=== PATIENT | male | born 1940 | race American Indian/Alaskan Native ===

== ENCOUNTER 2018-10-21 17:41 | Inpatient (IN) | payer BC, MEDICARE ==
[2018-10-14 12:28] VITALS: PULSE 220
[2018-10-22 11:49] VITALS: BMI 21.2
--- NOTE | 2018-10-22 14:21 | PCM.CPAPS ---
History of Present Illness - History of Present Illness History of Present Illness: Dr Pyle PMR consultation on Fred Dumont, born 1940 who has been admitted to [facility] acute inpatient rehabilitation following a left CVA with resultant right HP. He has not had a prior event. MRI of the brain revealed a left pontine infarct. Carotid studies did not show significant stenosis. He is right hand dominant and was independent [employer] Review of Systems - Constitutional Constitutional: absent: Chills - EENT Eyes: absent: Change in Vision, Discharge, Dry Eye, Sees Flashes Ears: absent: Ear Discharge, Ear Pain Nose/Mouth/Throat: absent: Nasal Congestion, Nasal Discharge, Hoarsness - Respiratory Respiratory: absent: Cough, Dyspnea, Hemoptysis, Wheezing, Stridor - Gastrointestinal Gastrointestinal: absent: Belching, Bloating, Constipation, Cramping, Diarrhea - Integumentary Integumentary: absent: As Per HPI, Acne, Alopecia, Bleeding Lesions, Change in Hair, Change in Nails, Change in Pigmentation, Changing Lesions, Dry Skin, Erythema, Furuncle, Hirsutism, Lesions, New Lesions, Non-Healing Lesions, Photosensitivity, Pruritus, Rash, Skin Pain, Skin Ulcer, Sores, Striae, Swelling, Unusual Bruising, Wounds, Jaundice, Other - Neurological Neurological: absent: Abnormal Movements, Burning Sensations, Confusion, Headaches, Loss of Vision, Vertigo - Psychiatric Psychiatric: absent: Anxiety Past Patient History - Tetanus Immunizations Tetanus Immunization: Unknown - Past Social History Smoking Status: Never Smoked Alcohol: Occasional Drugs: Denies Home Situation {Lives}: With Family (1 flight of steps) - CARDIAC Hx Cardiac Disorders: Yes Hx Hypertension: Yes - PULMONARY Hx Respiratory Disorders: No - NEUROLOGICAL Hx Neurological Disorder: No - HEENT Hx HEENT Problems: Yes (nosebleed in the past) - RENAL Hx Chronic Kidney Disease: No - ENDOCRINE/METABOLIC Hx Endocrine Disorders: No - HEMATOLOGICAL/ONCOLOGICAL Hx Blood Disorders: No - INTEGUMENTARY Hx Dermatological Problems: No - MUSCULOSKELETAL/RHEUMATOLOGICAL Hx Rheumatoid Arthritis: Yes - GASTROINTESTINAL Other/Comment: Gastro reflux - GENITOURINARY/GYNECOLOGICAL Hx Genitourinary Disorders: No - PSYCHIATRIC Hx Psychophysiologic Disorder: No - SURGICAL HISTORY Hx Surgeries: Yes Other/Comment: Cornary stent,cardiac cath - ANESTHESIA Hx Anesthesia Reactions: No Hx Malignant Hyperthermia: No Meds Allergies/Adverse Reactions: Allergies Allergy/AdvReac Type Severity Reaction Status Date / Time acetaminophen [From Percocet] Allergy RASH Verified 07/30/18 16:52 metronidazole [From Flagyl] Allergy RASH Verified 07/30/18 16:52 neomycin Allergy RASH Verified 07/30/18 16:52 oxycodone [From Percocet] Allergy RASH Verified 07/30/18 16:52 Physical Exam - Constitutional Appears: Non-toxic, No Acute Distress - Head Exam Head Exam: ATRAUMATIC, NORMAL INSPECTION, NORMOCEPHALIC - Eye Exam Eye Exam: EOMI - ENT Exam ENT Exam: Mucous Membranes Moist - Respiratory Exam Respiratory Exam: NORMAL BREATHING PATTERN - Cardiovascular Exam Cardiovascular Exam: REGULAR RHYTHM - GI/Abdominal Exam GI & Abdominal Exam: Normal Bowel Sounds - Extremities Exam Extremities exam: Negative for: calf tenderness - Neurological Exam Neurological exam: Alert, CN II-XII Intact, Oriented x3 - Psychiatric Exam Psychiatric exam: Normal Affect, Normal Mood - Skin Skin Exam: Warm Assessment & Plan - Assessment and Plan (Free Text) Assessment: PT/OT to continue to help increase functional independence Team conference for d/c planning Pain: controlled Vascular: no evidence of DVT GI: No evidence of constipation or diarrhea Patient is an excellent acute rehabilitation candidate and will have focused speech, PT, OT and recreational therapy to help facilitate a safe and appropriate d/c plan - Functional Status Prior to Admission: independent Current Status: needs assistance in ADLs and ambulation Impairment Code: 01.2
--- NOTE | 2018-10-22 15:19 | CP.PCM.HP ---
History of Present Illness - History of Present Illness History of Present Illness: 78 yo male with history of HTN, CAD, AFib, Colon cancer post-resection in 2013 and ESRD was admitted in [facility] on 10/14/2018 because of sudden onset of paresthesia of the left hand and right side of the face. MRI showed left pontine infarct. On 10/20/2018 patient underwent his 1st hemodialysis followed with another hemodialysis the next day. He was transferred to Acute Rehab today, 10/22/2018, to undergo therapy and continued management. Present on Admission - Present on Admission Any Indicators Present on Admission: Yes History of DVT/PE: Yes History of Uncontrolled Diabetes: Yes Urinary Catheter: Yes Decubitus Ulcer Present: Yes Review of Systems - Review of Systems All systems: reviewed and no additional remarkable complaints except (aside from those mentioned above, 12 point system review were negative by me) Past Patient History - Tetanus Immunizations Tetanus Immunization: Unknown - Past Social History Smoking Status: Never Smoked Chewing Tobacco Use: No Cigar Use: No Alcohol: Occasional Drugs: Denies Home Situation {Lives}: With Family - CARDIAC Hx Cardiac Disorders: Yes Hx Atrial Fibrillation: Yes Hx Hypertension: Yes - PULMONARY Hx Respiratory Disorders: No - NEUROLOGICAL Hx Neurological Disorder: No - HEENT Hx HEENT Problems: Yes (nosebleed in the past) - RENAL Hx Chronic Kidney Disease: Yes Hx Dialysis: Yes Type of Dialysis Access: right subclavian Date of Last Dialysis Treatment: 10/21/18 Hx Renal Failure: Yes - ENDOCRINE/METABOLIC Hx Endocrine Disorders: No - HEMATOLOGICAL/ONCOLOGICAL Hx Blood Disorders: No Hx Cancer: Yes - INTEGUMENTARY Hx Dermatological Problems: No - MUSCULOSKELETAL/RHEUMATOLOGICAL Hx Rheumatoid Arthritis: Yes - GASTROINTESTINAL Hx Bowel Surgery: Yes (colon resection, 2012) Other/Comment: Gastro reflux - GENITOURINARY/GYNECOLOGICAL Hx Genitourinary Disorders: No - PSYCHIATRIC Hx Psychophysiologic Disorder: No - SURGICAL HISTORY Hx Surgeries: Yes Hx Coronary Stent: Yes (2005) Hx Vascular Access Device: Yes (right subclavian) Other/Comment: Coronary stent, cardiac cath - ANESTHESIA Hx Anesthesia Reactions: No Hx Malignant Hyperthermia: No Meds Allergies/Adverse Reactions: Allergies Allergy/AdvReac Type Severity Reaction Status Date / Time acetaminophen [From Percocet] Allergy RASH Verified 07/30/18 16:52 metronidazole [From Flagyl] Allergy RASH Verified 07/30/18 16:52 neomycin Allergy RASH Verified 07/30/18 16:52 oxycodone [From Percocet] Allergy RASH Verified 07/30/18 16:52 Physical Exam - Constitutional Appears: No Acute Distress - Head Exam Head Exam: ATRAUMATIC - Eye Exam Eye Exam: absent: Scleral icterus - ENT Exam ENT Exam: Mucous Membranes Moist - Neck Exam Neck exam: Negative for: Meningismus - Respiratory Exam Respiratory Exam: absent: Rales, Rhonchi, Wheezes, Respiratory Distress - Cardiovascular Exam Cardiovascular Exam: REGULAR RHYTHM, +S1, +S2 - GI/Abdominal Exam GI & Abdominal Exam: Soft. absent: Tenderness - Rectal Exam Rectal Exam: Deferred - Neurological Exam Neurological exam: Alert, Oriented x3 - Psychiatric Exam Psychiatric exam: Normal Affect - Skin Skin Exam: Dry, Intact Assessment & Plan - Assessment and Plan (Free Text) Assessment: 78 yo male with history of HTN, CAD, AFib, Colon cancer post-resection in 2012 and ESRD was admitted in [facility] on 10/14/2018 because of sudden onset of paresthesia of the left hand and right side of the face. MRI showed left pontine infarct. On 10/20/2018 patient underwent his 1st hemodialysis followed with another hemodialysis the next day. He was transferred to Acute Rehab today, 10/22/2018, to undergo therapy and continued management. 1. Left Pontine Infarct refer to PT for evaluation and management physiatry consult with Dr Pyle continue ASA and BP control 2. HTN BP stable continue Amlodipine 3. CAD continue ASA lipid profile may need to start on statin 4. AFib presently in sinus with control rate continue Amiodarone on Warfarin 5. ESRD recently started on hemodialysis renal consul with Dr Escobedo 6. DVT prophylaxis on Warfarin
[2018-10-22] MEDS: Pantoprazole 40 mg EC Tab PO SCH (15:31)
[2018-10-22 15:41] LABS: INR 1.5; PROTHROMBIN TIME 17.6 Seconds (9.8-13.1)
--- NOTE | 2018-10-22 17:35 | PCM.OPOC ---
Physiatry Overall Plan of Care - Overall Plan of Care Estimated Length of Stay in Weeks: 3 Rehab Impairment: Mobility, Gait, Speech, Balance, Coordination Etiologic Diagnosis: Cerebrovascular Accident Rehab/Medical Prognosis: Good - Anticipated Interventions Physical Therapy:: Yes Number of Hours: 1.5 Number of times per week: 6 Number of Week(s) Duration: 3 Occupational Therapy:: Yes Number of Hours: 1.5 Number of times per week: 6 Number of Week(s) Duration: 3 Speech Therapy:: Yes Number of Hours: 0.5 Number of times per week: 5 Number of Week(s) Duration: 3 Recreational Therapy:: Yes Number of Hours: 0.5 Number of times per week: 5 Number of Week(s) Duration: 3 - Therapy Goals Bed Mobility: Independent Ambulation: Supervision Functional Positional Changes:: Independent - Functional Status Prior to Admission: Independent Current Status: needs assistance in ADLs and ambulation - Functional Outcomes Functional Outcomes: to be evaluated - Discharge Plan Identification of Barriers to Discharge: Home Situation Discharge Destination: Home
--- NOTE | 2018-10-22 19:06 | CP.PCM.CON ---
History of Present Illness - History of Present Illness History of Present Illness: reasons for consult : ESRD on HD M W F ANEMIA OF CKD .. ELECTROLYTES ABN Old records from [facility] reviewed .. All records from [facility] reviewed .. Pt was seen and examined 78 yo male with history of HTN, CAD, AFib, Colon cancer post-resection in 2012 and ESRD was admitted in [facility] on 10/14/2018 because of sudden onset of paresthesia of the left hand and right side of the face. MRI showed left pontine infarct. On 10/20/2018 patient underwent his 1st hemodialysis followed with another hemodialysis the next day. He was transferred to Acute Rehab today, 10/22/2018, to undergo therapy and continued management. Past Patient History - Tetanus Immunizations Tetanus Immunization: Unknown - Past Medical History & Family History Past Medical History?: Yes - Past Social History Smoking Status: Never Smoked Alcohol: Occasional Drugs: Denies Home Situation {Lives}: With Family (1 flight of steps) - CARDIAC Hx Cardiac Disorders: Yes Hx Hypertension: Yes - PULMONARY Hx Respiratory Disorders: No - NEUROLOGICAL Hx Neurological Disorder: No - HEENT Hx HEENT Problems: Yes (nosebleed in the past) - RENAL Hx Chronic Kidney Disease: No - ENDOCRINE/METABOLIC Hx Endocrine Disorders: No - HEMATOLOGICAL/ONCOLOGICAL Hx Blood Disorders: No - INTEGUMENTARY Hx Dermatological Problems: No - MUSCULOSKELETAL/RHEUMATOLOGICAL Hx Rheumatoid Arthritis: Yes - GASTROINTESTINAL Other/Comment: Gastro reflux - GENITOURINARY/GYNECOLOGICAL Hx Genitourinary Disorders: No - PSYCHIATRIC Hx Psychophysiologic Disorder: No - SURGICAL HISTORY Hx Surgeries: Yes Other/Comment: Cornary stent,cardiac cath - ANESTHESIA Hx Anesthesia Reactions: No Hx Malignant Hyperthermia: No Meds Allergies/Adverse Reactions: Allergies Allergy/AdvReac Type Severity Reaction Status Date / Time acetaminophen [From Percocet] Allergy RASH Verified 07/30/18 16:52 metronidazole [From Flagyl] Allergy RASH Verified 07/30/18 16:52 neomycin Allergy RASH Verified 07/30/18 16:52 oxycodone [From Percocet] Allergy RASH Verified 07/30/18 16:52 - Medications Medications: Current Medications Amiodarone HCl (Cordarone) 100 mg PO DAILY [facility] Amlodipine Besylate (Norvasc) 10 mg PO DAILY [facility] Aspirin (Aspirin) 325 mg PO DAILY [facility] Docusate Sodium (Colace) 100 mg PO BID [facility] Last Admin: 10/22/18 17:57 Dose: 100 mg Folic Acid (Folic Acid) 1 mg PO DAILY [facility] Pantoprazole Sodium (Protonix Ec Tab) 40 mg PO DAILY [facility] Last Admin: 10/22/18 15:31 Dose: 40 mg Results - Vital Signs Recent Vital Signs: Last Vital Signs Temp Pulse 67 10/22/18 15:33 Resp 18 10/22/18 14:18 BP Pulse Ox 97 10/22/18 15:33 - Labs Labs: Laboratory Results - last 24 hr 10/22/18 10/22/18 15:02 16:14 PT 17.6 H INR 1.5 POC Glucose (mg/dL) 99 Assessment & Plan - Assessment and Plan (Free Text) Assessment: ESRD ON HD M W F.. WILL C/O HD AN IN PT ANEMIA OF CKD .. ELECTROLYTES ABN . CVA MMP P : HD IN AM PRE HD LABS IN AM C/O CURRENT MEDS WILL F/U CLOSELY - Date & Time Date: 10/22/18 Time: 15:00
[2018-10-22] MEDS: Ergocalciferol 50,000 Intl Units Cap PO SCH (21:13)
[2018-10-23 06:33] LABS: INR 1.4; PROTHROMBIN TIME 15.5 Seconds (9.8-13.1)
[2018-10-23 06:34] LABS: CALCIUM 7.4 mg/dL (8.4-10.2)
[2018-10-23] MEDS: Multivitamin Vitamin B Complex (Nephro-Vite) Tab PO SCH (09:16)
[2018-10-23] MEDS: Pantoprazole 40 mg EC Tab PO SCH (09:17)
[2018-10-23 09:25] LABS: BASO % 0.5 % (0.0-2.0); EOS # 0.3 K/uL (0.0-0.7); EOS % 5.5 % (0.0-4.0); HEMOGLOBIN 9.9 g/dL (12.0-18.0); LYMPH # 2.3 K/uL (1.0-4.3); LYMPH % 36.7 % (20.0-40.0); MEAN CELL VOLUME 75.2 fl (80.0-94.0); MEAN CORPUSCULAR HEMOGLOBIN 24.3 pg (27.0-31.0); MEAN CORPUSCULAR HGB CONC 32.3 g/dL (33.0-37.0); MEAN PLATELET VOLUME 9.2 fl (7.2-11.7); MONO # 0.6 K/uL (0.0-0.8); MONO % 8.9 % (0.0-10.0); NEUT # 3.1 K/uL (1.8-7.0); NEUT % 48.4 % (50.0-75.0); NRBC % 0.2 % (0.0-0.0); RBC 4.06 Mil/uL (4.40-5.90); RED CELL DISTRIBUTION WIDTH 21.4 % (11.5-14.5); WHITE BLOOD COUNT 6.3 K/uL (4.8-10.8)
--- NOTE | 2018-10-23 13:21 | CP.PCM.PN ---
Subjective - Date & Time of Evaluation Date of Evaluation: 10/23/18 Time of Evaluation: 13:00 - Subjective Subjective: SEEN ON RENAL F/U FULLY ALERT AND RSPONSIVE APPEARS IN [employer] .. CONVERSANT ALL LABS REVIEWED .. CASE D/W RN .. HD CONSENT OBTAINED HD TO START TODAY AT 3 Objective - Vital Signs/Intake and Output Vital Signs (last 24 hours): Temp Pulse Resp BP Pulse Ox 97.9 F 63 18 151/71 H 95 10/23/18 07:35 10/23/18 09:17 10/23/18 07:35 10/23/18 09:17 10/23/18 07:35 - Medications Medications: Current Medications Amiodarone HCl (Cordarone) 100 mg PO DAILY [facility] Last Admin: 10/23/18 09:17 Dose: 100 mg Amlodipine Besylate (Norvasc) 10 mg PO DAILY [facility] Last Admin: 10/23/18 09:16 Dose: 10 mg Ascorbic Acid (Vitamin C 500 Mg Tab) 500 mg PO DAILY [facility] Last Admin: 10/23/18 09:17 Dose: 500 mg Aspirin (Aspirin) 325 mg PO DAILY [facility] Last Admin: 10/23/18 09:23 Dose: 325 mg Docusate Sodium (Colace) 100 mg PO BID [facility] Last Admin: 10/23/18 09:18 Dose: 100 mg Epoetin Francisco (Procrit) 2,000 unit SC MWF [facility] Ergocalciferol (Drisdol 50,000 Intl Units Cap) 1 cap PO Q7D [facility] Last Admin: 10/22/18 21:13 Dose: 1 cap Pantoprazole Sodium (Protonix Ec Tab) 40 mg PO DAILY [facility] Last Admin: 10/23/18 09:17 Dose: 40 mg Vitamin B Complex/Vit C/Folic Acid (Nephro-Serjio) 1 tab PO DAILY [facility] Last Admin: 10/23/18 09:16 Dose: 1 tab Warfarin Sodium (Coumadin) 5 mg PO QD5 ONE; Protocol Stop: 10/23/18 17:01 - Labs Labs: 10/23/18 05:35 10/23/18 05:35 PT 15.5 Seconds (9.8-13.1) H 10/23/18 05:35 INR 1.4 10/23/18 05:35 Assessment and Plan - Assessment and Plan (Free Text) Assessment: ESRD ONHD M W F .. HD TODAY ANEMIA OF CKD .. STARTED HIM OD EPO 2000 S/Q M W F AND IV VENOFER ON EACH HD X 10 ELECTROLYTES R OK MMP P : LABS REV .. CHECK PHOS MAG VIT D 25 UA ADD VENOFER AND EPO ABOVE WILL F/U CLOSELY D/W DR ORTIZ
--- NOTE | 2018-10-23 16:15 | CP.PCM.PN ---
Subjective - Date & Time of Evaluation Date of Evaluation: 10/23/18 Time of Evaluation: 16:14 - Subjective Subjective: Patient doing well with minimal residual weakness Objective - Vital Signs/Intake and Output Vital Signs (last 24 hours): Temp Pulse Resp BP Pulse Ox 97.9 F 63 18 151/71 H 95 10/23/18 07:35 10/23/18 09:17 10/23/18 07:35 10/23/18 09:17 10/23/18 07:35 - Medications Medications: Current Medications Amiodarone HCl (Cordarone) 100 mg PO DAILY [facility] Last Admin: 10/23/18 09:17 Dose: 100 mg Amlodipine Besylate (Norvasc) 10 mg PO DAILY [facility] Last Admin: 10/23/18 09:16 Dose: 10 mg Ascorbic Acid (Vitamin C 500 Mg Tab) 500 mg PO DAILY [facility] Last Admin: 10/23/18 09:17 Dose: 500 mg Aspirin (Aspirin) 325 mg PO DAILY [facility] Last Admin: 10/23/18 09:23 Dose: 325 mg Docusate Sodium (Colace) 100 mg PO BID [facility] Last Admin: 10/23/18 09:18 Dose: 100 mg Epoetin Francisco (Procrit) 2,000 unit SC MWF [facility] Ergocalciferol (Drisdol 50,000 Intl Units Cap) 1 cap PO Q7D [facility] Last Admin: 10/22/18 21:13 Dose: 1 cap Iron Sucrose 100 mg/ Sodium (Chloride) 105 mls @ 105 mls/hr IVPB DAILY [facility] Pantoprazole Sodium (Protonix Ec Tab) 40 mg PO DAILY [facility] Last Admin: 10/23/18 09:17 Dose: 40 mg Vitamin B Complex/Vit C/Folic Acid (Nephro-Serjio) 1 tab PO DAILY [facility] Last Admin: 10/23/18 09:16 Dose: 1 tab Warfarin Sodium (Coumadin) 5 mg PO QD5 ONE; Protocol Stop: 10/23/18 17:01 - Labs Labs: 10/23/18 05:35 10/23/18 05:35 PT 15.5 Seconds (9.8-13.1) H 10/23/18 05:35 INR 1.4 10/23/18 05:35 - Constitutional Appears: Non-toxic, No Acute Distress - Head Exam Head Exam: ATRAUMATIC, NORMAL INSPECTION, NORMOCEPHALIC - Eye Exam Eye Exam: EOMI - ENT Exam ENT Exam: Mucous Membranes Moist - Respiratory Exam Respiratory Exam: NORMAL BREATHING PATTERN - Cardiovascular Exam Cardiovascular Exam: REGULAR RHYTHM - GI/Abdominal Exam GI & Abdominal Exam: absent: Distended, Guarding - Neurological Exam Neurological Exam: Alert, CN II-XII Intact, Oriented x3 - Psychiatric Exam Psychiatric exam: Normal Affect, Normal Mood - Skin Skin Exam: Warm Assessment and Plan - Assessment and Plan (Free Text) Assessment: PT/OT to continue to help increase functional independence Team conference for d/c planning Pain: controlled Vascular: no evidence of DVT GI: No evidence of constipation or diarrhea Patient continues to be an excellent acute rehabilitation candidate and will have continued focused speech, PT, OT and recreational therapy to help facilitate a safe and appropriate d/c plan
[2018-10-23] MEDS: Epoetin Alfa 20000 UNIT/ML Inj SC SCH (18:14)
[2018-10-23 18:32] LABS: URIC ACID 5.3 mg/Dl (3.5-8.5)
[2018-10-24] MEDS: Pantoprazole 40 mg EC Tab PO SCH (08:38)
[2018-10-24] MEDS: Multivitamin Vitamin B Complex (Nephro-Vite) Tab PO SCH (08:38)
[2018-10-24 09:09] LABS: INR 1.3; PROTHROMBIN TIME 14.6 Seconds (9.8-13.1)
--- NOTE | 2018-10-24 11:46 | CP.PCM.PN ---
Subjective - Date & Time of Evaluation Date of Evaluation: 10/24/18 Time of Evaluation: 09:15 - Subjective Subjective: no acute complaints at present Objective - Vital Signs/Intake and Output Vital Signs (last 24 hours): Temp Pulse Resp BP Pulse Ox 98.1 F 71 19 132/77 99 10/24/18 08:12 10/24/18 08:39 10/24/18 08:12 10/24/18 08:39 10/24/18 08:12 - Medications Medications: Current Medications Amiodarone HCl (Cordarone) 100 mg PO DAILY [facility] Last Admin: 10/24/18 08:39 Dose: 100 mg Amlodipine Besylate (Norvasc) 10 mg PO DAILY [facility] Last Admin: 10/24/18 08:37 Dose: 10 mg Ascorbic Acid (Vitamin C 500 Mg Tab) 500 mg PO DAILY [facility] Last Admin: 10/24/18 08:37 Dose: 500 mg Aspirin (Aspirin) 325 mg PO DAILY [facility] Last Admin: 10/24/18 08:44 Dose: 325 mg Docusate Sodium (Colace) 100 mg PO BID [facility] Last Admin: 10/24/18 08:37 Dose: 100 mg Epoetin Francisco (Procrit) 2,000 unit SC MWF [facility] Last Admin: 10/23/18 18:14 Dose: 2,000 unit Ergocalciferol (Drisdol 50,000 Intl Units Cap) 1 cap PO Q7D [facility] Last Admin: 10/22/18 21:13 Dose: 1 cap Iron Sucrose 100 mg/ Sodium (Chloride) 105 mls @ 105 mls/hr IVPB MWF [facility] Last Admin: 10/23/18 18:43 Dose: 105 mls/hr Pantoprazole Sodium (Protonix Ec Tab) 40 mg PO DAILY [facility] Last Admin: 10/24/18 08:38 Dose: 40 mg Vitamin B Complex/Vit C/Folic Acid (Nephro-Serjio) 1 tab PO DAILY [facility] Last Admin: 10/24/18 08:38 Dose: 1 tab - Labs Labs: 10/23/18 05:35 10/23/18 05:35 PT 14.6 Seconds (9.8-13.1) H 10/24/18 08:30 INR 1.3 10/24/18 08:30 - Constitutional Appears: Well - Head Exam Head Exam: ATRAUMATIC, NORMAL INSPECTION, NORMOCEPHALIC - Eye Exam Eye Exam: EOMI, Normal appearance, PERRL Pupil Exam: NORMAL ACCOMODATION, PERRL - ENT Exam ENT Exam: Mucous Membranes Moist, Normal Exam - Neck Exam Neck Exam: Full ROM, Normal Inspection - Respiratory Exam Respiratory Exam: Clear to Ausculation Bilateral, NORMAL BREATHING PATTERN - Cardiovascular Exam Cardiovascular Exam: REGULAR RHYTHM - GI/Abdominal Exam GI & Abdominal Exam: Normal Bowel Sounds - Rectal Exam Rectal Exam: NORMAL INSPECTION - Exam External exam: NORMAL EXTERNAL EXAM - Extremities Exam Extremities Exam: Full ROM, Normal Capillary Refill, Normal Inspection - Back Exam Back Exam: NORMAL INSPECTION - Neurological Exam Neurological Exam: Alert, Awake - Psychiatric Exam Psychiatric exam: Normal Affect, Normal Mood - Skin Skin Exam: Dry, Normal Color Assessment and Plan (1) CVA (cerebral vascular accident) Assessment & Plan: Covering for Dr Pyle, plan for physical, occupational therapy,rec therapy Status: Acute (2) ESRD (end stage renal disease) Status: Chronic
--- NOTE | 2018-10-24 17:41 | CP.PCM.PN ---
Subjective - Date & Time of Evaluation Date of Evaluation: 10/24/18 Time of Evaluation: 15:00 - Subjective Subjective: SEEN ON RENAL F/U FEELS MUCH IMPROVED HAD HIS HD YESTERDAY .. TOLERATED WELL ALL LABS AND MEDS REVIEWED Objective - Vital Signs/Intake and Output Vital Signs (last 24 hours): Temp Pulse Resp BP Pulse Ox 98.1 F 71 19 132/77 99 10/24/18 08:12 10/24/18 08:39 10/24/18 08:12 10/24/18 08:39 10/24/18 08:12 - Medications Medications: Current Medications Amiodarone HCl (Cordarone) 100 mg PO DAILY [facility] Last Admin: 10/24/18 08:39 Dose: 100 mg Amlodipine Besylate (Norvasc) 10 mg PO DAILY [facility] Last Admin: 10/24/18 08:37 Dose: 10 mg Ascorbic Acid (Vitamin C 500 Mg Tab) 500 mg PO DAILY [facility] Last Admin: 10/24/18 08:37 Dose: 500 mg Aspirin (Aspirin) 325 mg PO DAILY [facility] Last Admin: 10/24/18 08:44 Dose: 325 mg Docusate Sodium (Colace) 100 mg PO BID [facility] Last Admin: 10/24/18 17:14 Dose: 100 mg Epoetin Francisco (Procrit) 2,000 unit SC MWF [facility] Last Admin: 10/23/18 18:14 Dose: 2,000 unit Ergocalciferol (Drisdol 50,000 Intl Units Cap) 1 cap PO Q7D [facility] Last Admin: 10/22/18 21:13 Dose: 1 cap Iron Sucrose 100 mg/ Sodium (Chloride) 105 mls @ 105 mls/hr IVPB MWF [facility] Last Admin: 10/23/18 18:43 Dose: 105 mls/hr Pantoprazole Sodium (Protonix Ec Tab) 40 mg PO DAILY [facility] Last Admin: 10/24/18 08:38 Dose: 40 mg Vitamin B Complex/Vit C/Folic Acid (Nephro-Serjio) 1 tab PO DAILY [facility] Last Admin: 10/24/18 08:38 Dose: 1 tab - Labs Labs: 10/23/18 05:35 10/23/18 05:35 PT 14.6 Seconds (9.8-13.1) H 10/24/18 08:30 INR 1.3 10/24/18 08:30 Assessment and Plan - Assessment and Plan (Free Text) Assessment: ESRD ON HD .. HAD HD YESTERDAY ANEMIA OF CKD .. ON EPO 2000 S/Q .. ALSO ON IV VENOFER 100 MG ON HD X 10 ELECTROLYTES ARE OK CVA MMO P : C/O CURRENT HD C/O PRESENR MANAGEMENT C/O CURRENT MEDS
[2018-10-25 08:25] LABS: INR 1.3; PROTHROMBIN TIME 14.6 Seconds (9.8-13.1)
[2018-10-25] MEDS: Pantoprazole 40 mg EC Tab PO SCH (09:00)
[2018-10-25] MEDS: Multivitamin Vitamin B Complex (Nephro-Vite) Tab PO SCH (09:01)
--- NOTE | 2018-10-25 17:35 | CP.PCM.PN ---
Subjective - Date & Time of Evaluation Date of Evaluation: 10/25/18 Time of Evaluation: 15:00 - Subjective Subjective: SEEN ON RENAL F/U FEELS IMPROVED ON HD M W F ALL EMR REVIEWED .. PT WAS SEEN AND EXAMINED Objective - Vital Signs/Intake and Output Vital Signs (last 24 hours): Temp Pulse Resp BP Pulse Ox 97.9 F 82 22 148/78 97 10/25/18 08:50 10/25/18 09:01 10/25/18 08:50 10/25/18 09:01 10/25/18 08:50 - Medications Medications: Current Medications Amiodarone HCl (Cordarone) 100 mg PO DAILY [facility] Last Admin: 10/25/18 09:01 Dose: 100 mg Amlodipine Besylate (Norvasc) 10 mg PO DAILY [facility] Last Admin: 10/25/18 09:00 Dose: 10 mg Ascorbic Acid (Vitamin C 500 Mg Tab) 500 mg PO DAILY [facility] Last Admin: 10/25/18 09:00 Dose: 500 mg Aspirin (Aspirin) 325 mg PO DAILY [facility] Last Admin: 10/25/18 09:00 Dose: 325 mg Docusate Sodium (Colace) 100 mg PO BID [facility] Last Admin: 10/25/18 09:01 Dose: 100 mg Epoetin Francisco (Procrit) 2,000 unit SC MWF [facility] Last Admin: 10/23/18 18:14 Dose: 2,000 unit Ergocalciferol (Drisdol 50,000 Intl Units Cap) 1 cap PO Q7D [facility] Last Admin: 10/22/18 21:13 Dose: 1 cap Iron Sucrose 100 mg/ Sodium (Chloride) 105 mls @ 105 mls/hr IVPB MWF [facility] Last Admin: 10/23/18 18:43 Dose: 105 mls/hr Pantoprazole Sodium (Protonix Ec Tab) 40 mg PO DAILY [facility] Last Admin: 10/25/18 09:00 Dose: 40 mg Vitamin B Complex/Vit C/Folic Acid (Nephro-Serjio) 1 tab PO DAILY [facility] Last Admin: 10/25/18 09:01 Dose: 1 tab - Labs Labs: 10/23/18 05:35 10/23/18 05:35 PT 14.6 Seconds (9.8-13.1) H 10/25/18 06:00 INR 1.3 05/05/19 06:00 Assessment and Plan - Assessment and Plan (Free Text) Assessment: ESRD ON HD M W F ANEMIA OF CKD .. WAS STARTED ON EPO AND VENOFER ELECTROLYTES [place] CVA MMP P : C/O HD C/O CURRENT MEDS C/O PRESENT CARE
[2018-10-26 07:07] LABS: INR 1.4; PROTHROMBIN TIME 15.5 Seconds (9.8-13.1)
[2018-10-26] MEDS: Multivitamin Vitamin B Complex (Nephro-Vite) Tab PO SCH (08:45)
[2018-10-26] MEDS: Pantoprazole 40 mg EC Tab PO SCH (08:45)
--- NOTE | 2018-10-26 10:28 | CP.PCM.PN ---
<Diana Valera - Last Filed: 10/26/18 14:20> Subjective - Date & Time of Evaluation Date of Evaluation: 10/26/18 Time of Evaluation: 09:05 - Subjective Subjective: Patient seen and examined at bedside. In no acute distress. Reports appetite is ok. Reports normal urine and stool output. Denies chest pain, weakness, dizziness. Tolerating PT well. Objective - Vital Signs/Intake and Output Vital Signs (last 24 hours): Temp Pulse Resp BP Pulse Ox 97.5 F L 83 20 155/77 H 99 10/26/18 07:33 10/26/18 09:48 10/26/18 07:33 10/26/18 08:46 10/26/18 07:33 - Medications Medications: Current Medications Amiodarone HCl (Cordarone) 100 mg PO DAILY [facility] Last Admin: 10/26/18 08:46 Dose: 100 mg Amlodipine Besylate (Norvasc) 10 mg PO DAILY [facility] Last Admin: 10/26/18 08:46 Dose: 10 mg Ascorbic Acid (Vitamin C 500 Mg Tab) 500 mg PO DAILY [facility] Last Admin: 10/26/18 08:45 Dose: 500 mg Aspirin (Aspirin) 325 mg PO DAILY [facility] Last Admin: 10/26/18 08:45 Dose: 325 mg Docusate Sodium (Colace) 100 mg PO BID [facility] Last Admin: 10/26/18 08:45 Dose: 100 mg Epoetin Francisco (Procrit) 2,000 unit SC MWF [facility] Last Admin: 10/23/18 18:14 Dose: 2,000 unit Ergocalciferol (Drisdol 50,000 Intl Units Cap) 1 cap PO Q7D [facility] Last Admin: 10/22/18 21:13 Dose: 1 cap Iron Sucrose 100 mg/ Sodium (Chloride) 105 mls @ 105 mls/hr IVPB MWF [facility] Last Admin: 10/23/18 18:43 Dose: 105 mls/hr Pantoprazole Sodium (Protonix Ec Tab) 40 mg PO DAILY [facility] Last Admin: 10/26/18 08:45 Dose: 40 mg Vitamin B Complex/Vit C/Folic Acid (Nephro-Serjio) 1 tab PO DAILY [facility] Last Admin: 10/26/18 08:45 Dose: 1 tab Warfarin Sodium (Coumadin) 7.5 mg PO QD5 [facility]; Protocol Stop: 10/26/18 17:01 - Labs Labs: 10/23/18 05:35 10/23/18 05:35 PT 15.5 Seconds (9.8-13.1) H 10/26/18 06:50 INR 1.4 10/26/18 06:50 - Constitutional Appears: No Acute Distress - Head Exam Head Exam: NORMAL INSPECTION - Eye Exam Eye Exam: EOMI - ENT Exam ENT Exam: Mucous Membranes Moist - Respiratory Exam Respiratory Exam: Clear to Ausculation Bilateral, NORMAL BREATHING PATTERN - Cardiovascular Exam Cardiovascular Exam: REGULAR RHYTHM, +S1, +S2 - GI/Abdominal Exam GI & Abdominal Exam: Soft, Normal Bowel Sounds. absent: Tenderness - Neurological Exam Neurological Exam: Alert, Awake, Oriented x3 - Psychiatric Exam Psychiatric exam: Normal Affect, Normal Mood - Skin Skin Exam: Dry, Normal Color, Warm Assessment and Plan - Assessment and Plan (Free Text) Assessment: 78 yr old M with history of HTN, CAD, AFib, Colon cancer post-resection in 2012 and ESRD was admitted in [facility] on 10/14/2018 because of sudden onset of paresthesia of the left hand and right side of the face. MRI showed left pontine infarct. On 10/20/2018 patient underwent his 1st hemodialysis followed with another hemodialysis the next day. HD is scheduled MWF, patient is tolerating PT well. 1. Left Pontine Infarct -acute, stable -physiatry consult with Dr Pyle -continue aspirin 325mg PO QD, hypertension control 2. Hypertension -chronic, stable -continue Amlodipine 10mg PO QD 3. CAD -continue ASA -lipid profile 10/14/18: triglycerides 187, cholesterol 262, LDL 51, HDL 89 -will consider statin 4. AFib -chronic, stable -presently in sinus with control rate -continue Amiodarone 100 PO QD -INR 1.5 today, continue Warfarin 7.5 PO QD5 5. ESRD -recently started on hemodialysis -Nephrology on consult: Dr Escobedo; HD scheduled MWF, continue Epoetin 2,000 units SC MWF and Venofer 100mg IV MWF 6. DVT prophylaxis -patient on Warfarin <Leonela Torres - Last Filed: 10/26/18 19:47> Objective - Vital Signs/Intake and Output Vital Signs (last 24 hours): Temp Pulse Resp BP Pulse Ox 97.5 F L 83 20 155/77 H 99 10/26/18 07:33 10/26/18 09:48 10/26/18 07:33 10/26/18 08:46 10/26/18 07:33 - Medications Medications: Current Medications Amiodarone HCl (Cordarone) 100 mg PO DAILY [facility] Last Admin: 10/26/18 08:46 Dose: 100 mg Amlodipine Besylate (Norvasc) 10 mg PO DAILY [facility] Last Admin: 10/26/18 08:46 Dose: 10 mg Ascorbic Acid (Vitamin C 500 Mg Tab) 500 mg PO DAILY [facility] Last Admin: 10/26/18 08:45 Dose: 500 mg Aspirin (Aspirin) 325 mg PO DAILY [facility] Last Admin: 10/26/18 08:45 Dose: 325 mg Docusate Sodium (Colace) 100 mg PO BID [facility] Last Admin: 10/26/18 16:57 Dose: 100 mg Epoetin Francisco (Procrit) 2,000 unit SC MWF [facility] Last Admin: 10/26/18 18:44 Dose: 2,000 unit Ergocalciferol (Drisdol 50,000 Intl Units Cap) 1 cap PO Q7D [facility] Last Admin: 10/22/18 21:13 Dose: 1 cap Iron Sucrose 100 mg/ Sodium (Chloride) 105 mls @ 105 mls/hr IVPB MWF [facility] Last Admin: 10/26/18 18:45 Dose: 105 mls/hr Pantoprazole Sodium (Protonix Ec Tab) 40 mg PO DAILY [facility] Last Admin: 10/26/18 08:45 Dose: 40 mg Vitamin B Complex/Vit C/Folic Acid (Nephro-Serjio) 1 tab PO DAILY [facility] Last Admin: 10/26/18 08:45 Dose: 1 tab - Labs Labs: 10/23/18 05:35 10/23/18 05:35 PT 15.5 Seconds (9.8-13.1) H 10/26/18 06:50 INR 1.4 10/26/18 06:50 Attending/Attestation - Attestation I have personally seen and examined this patient.: Yes I have fully participated in the care of the patient.: Yes I have reviewed all pertinent clinical information, including history, physical exam and plan: Yes Notes (Text): 10/26/18 19:47 Agree with findings and plan as above
--- NOTE | 2018-10-26 13:57 | CP.PCM.PN ---
Subjective - Date & Time of Evaluation Date of Evaluation: 10/26/18 Time of Evaluation: 13:00 - Subjective Subjective: SEEN ON RENAL F/U ALONG WITH HIS EATING LUNCH .. REPORTS GOOD APPETITE FEELS MUCH BETTER ALL MEDICAL ISSUES AND LABS D/W PT Objective - Vital Signs/Intake and Output Vital Signs (last 24 hours): Temp Pulse Resp BP Pulse Ox 97.5 F L 83 20 155/77 H 99 10/26/18 07:33 10/26/18 09:48 10/26/18 07:33 10/26/18 08:46 10/26/18 07:33 - Medications Medications: Current Medications Amiodarone HCl (Cordarone) 100 mg PO DAILY [facility] Last Admin: 10/26/18 08:46 Dose: 100 mg Amlodipine Besylate (Norvasc) 10 mg PO DAILY [facility] Last Admin: 10/26/18 08:46 Dose: 10 mg Ascorbic Acid (Vitamin C 500 Mg Tab) 500 mg PO DAILY [facility] Last Admin: 10/26/18 08:45 Dose: 500 mg Aspirin (Aspirin) 325 mg PO DAILY [facility] Last Admin: 10/26/18 08:45 Dose: 325 mg Docusate Sodium (Colace) 100 mg PO BID [facility] Last Admin: 10/26/18 08:45 Dose: 100 mg Epoetin Francisco (Procrit) 2,000 unit SC [facility] Last Admin: 10/23/18 18:14 Dose: 2,000 unit Ergocalciferol (Drisdol 50,000 Intl Units Cap) 1 cap PO Q7D [facility] Last Admin: 10/22/18 21:13 Dose: 1 cap Iron Sucrose 100 mg/ Sodium (Chloride) 105 mls @ 105 mls/hr IVPB [facility] Last Admin: 10/23/18 18:43 Dose: 105 mls/hr Pantoprazole Sodium (Protonix Ec Tab) 40 mg PO DAILY [facility] Last Admin: 10/26/18 08:45 Dose: 40 mg Vitamin B Complex/Vit C/Folic Acid (Nephro-Serjio) 1 tab PO DAILY [facility] Last Admin: 10/26/18 08:45 Dose: 1 tab Warfarin Sodium (Coumadin) 7.5 mg PO QD5 [facility]; Protocol Stop: 10/26/18 17:01 - Labs Labs: 10/23/18 05:35 10/23/18 05:35 PT 15.5 Seconds (9.8-13.1) H 10/26/18 06:50 INR 1.4 10/26/18 06:50 Assessment and Plan - Assessment and Plan (Free Text) Assessment: ESRD ON HD M W F .. TO BE C/O ANEMIA OF CKD .. ON EPO AND VENOFER ELECTROLYTES R [place] CVA .. FOR PT MMP P: C/O CURRENT CARE C/O PRESENT MANAGEMENT C/O SAME MEDS
--- NOTE | 2018-10-26 17:29 | CP.PCM.PN ---
Subjective - Date & Time of Evaluation Date of Evaluation: 10/26/18 Time of Evaluation: 17:27 - Subjective Subjective: Fred Dumont, born 1940 who has been admitted to [facility] acute inpatient rehabilitation following a left CVA with resultant right HP. He has not had a prior event. MRI of the brain revealed a left pontine infarct. Carotid studies did not show significant stenosis. He is right hand dominant and was independent [employer]PER[employer] SURFACE. He feels that each day he is getting better and better. Denies sob/cp Objective - Vital Signs/Intake and Output Vital Signs (last 24 hours): Temp Pulse Resp BP Pulse Ox 97.5 F L 83 20 155/77 H 99 10/26/18 07:33 10/26/18 09:48 10/26/18 07:33 10/26/18 08:46 10/26/18 07:33 - Medications Medications: Current Medications Amiodarone HCl (Cordarone) 100 mg PO DAILY [facility] Last Admin: 10/26/18 08:46 Dose: 100 mg Amlodipine Besylate (Norvasc) 10 mg PO DAILY [facility] Last Admin: 10/26/18 08:46 Dose: 10 mg Ascorbic Acid (Vitamin C 500 Mg Tab) 500 mg PO DAILY [facility] Last Admin: 10/26/18 08:45 Dose: 500 mg Aspirin (Aspirin) 325 mg PO DAILY [facility] Last Admin: 10/26/18 08:45 Dose: 325 mg Docusate Sodium (Colace) 100 mg PO BID [facility] Last Admin: 10/26/18 16:57 Dose: 100 mg Epoetin Francisco (Procrit) 2,000 unit SC MWF [facility] Last Admin: 10/23/18 18:14 Dose: 2,000 unit Ergocalciferol (Drisdol 50,000 Intl Units Cap) 1 cap PO Q7D [facility] Last Admin: 10/22/18 21:13 Dose: 1 cap Iron Sucrose 100 mg/ Sodium (Chloride) 105 mls @ 105 mls/hr IVPB MWF [facility] Last Admin: 10/23/18 18:43 Dose: 105 mls/hr Pantoprazole Sodium (Protonix Ec Tab) 40 mg PO DAILY [facility] Last Admin: 10/26/18 08:45 Dose: 40 mg Vitamin B Complex/Vit C/Folic Acid (Nephro-Serjio) 1 tab PO DAILY [facility] Last Admin: 10/26/18 08:45 Dose: 1 tab - Labs Labs: 10/23/18 05:35 10/23/18 05:35 PT 15.5 Seconds (9.8-13.1) H 10/26/18 06:50 INR 1.4 10/26/18 06:50 - Constitutional Appears: Well, Non-toxic, No Acute Distress - Head Exam Head Exam: ATRAUMATIC, NORMAL INSPECTION, NORMOCEPHALIC - Eye Exam Eye Exam: EOMI - ENT Exam ENT Exam: Mucous Membranes Moist - Respiratory Exam Respiratory Exam: NORMAL BREATHING PATTERN - Cardiovascular Exam Cardiovascular Exam: REGULAR RHYTHM - GI/Abdominal Exam GI & Abdominal Exam: Normal Bowel Sounds - Neurological Exam Neurological Exam: Alert, Oriented x3 - Psychiatric Exam Psychiatric exam: Normal Affect, Normal Mood - Skin Skin Exam: Warm Assessment and Plan - Assessment and Plan (Free Text) Assessment: PT/OT to continue to help increase functional independence Team conference for d/c planning Pain: controlled Vascular: no evidence of DVT GI: No evidence of constipation or diarrhea Patient continues to be an excellent acute rehabilitation candidate and will have continued PT, OT and recreational therapy to help facilitate a safe and appropriate d/c plan
[2018-10-26] MEDS: Epoetin Alfa 20000 UNIT/ML Inj SC SCH (18:44)
[2018-10-27 06:04] LABS: INR 1.7; PROTHROMBIN TIME 18.9 Seconds (9.8-13.1)
[2018-10-27] MEDS: Pantoprazole 40 mg EC Tab PO SCH (08:52)
[2018-10-27] MEDS: Multivitamin Vitamin B Complex (Nephro-Vite) Tab PO SCH (08:55)
--- NOTE | 2018-10-27 13:34 | PCM.PSYTMC ---
Acute Rehab Team Conference - - Vital Signs: Vital Signs (Last 8 Hours): Vital Signs 10/27/18 10/27/18 10/27/18 08:22 08:52 09:00 Temperature 98.2 F 98.2 F Pulse Rate 77 80 77 Respiratory 20 20 Rate Blood Pressure 155/77 H 130/80 155/77 H O2 Sat by Pulse 99 Oximetry Pain: 0 - Precautions: Precautions: Fall Prevention - Medications/Other Issues: Comment: NA - Consults: Comment: Dr. David Winston - Skin: Incision Site: NA - Toileting: Toileting: Contact Guard - Bladder Management: Bladder Pattern: Normal Voiding Method: Toilet Bladder Management: Contact Guard - Transfers: Transfers: Supervision - ADL's: ADL's: Contact Guard - Pain Management: Other Intervention:: Non pharmacologic interventions, relaxation techniques, guided imagery. - Patient/Family Teaching: Other Intervention:: Medication regimen, fall and safety precautions - Goals/Time Frame: Comment: Patient would have improved balance and gait will be stable before discharge date. - Provider: Registered Nurse:: Mervat Cortes Physical Therapy - Bed Mobility Bed Mobility: Supervision, Verbal Cues - Transfers Wheelchair to Mat: Verbal Cues, Contact Guard, Minimal Assistance Sit to Stand: Supervision, Verbal Cues, Contact Guard Comment: no device - Ambulation Level of Assistance: Verbal Cues, Contact Guard, Minimal Assistance Distance (ft.): 125 Assistive Devices: N/A Orthoses: n/a Comment: -125 feet with standing rest breaks prn during gait x 15 trials. -no device. -CG/intermittent min A. -emphasis on increasing base of support, increased speed and normalization of gait mechanics. -patient has reduced L arm swing but reciprocal arm swing is much improved with improvement in speed and balance without cueing. -repeated trials on level surface to emphasize repetition. -over emphasized base of support in hopes to normalize pattern and reduce scissoring. -min A/CG with progression to reduced assistance with each progressive trial of gait. -continues to present with impaired turning balance and impaired gait pattern during turn sequences requiring external assistance for stability - Stair Negotiation Stairs: Level of Assistance: Supervision, Verbal Cues, Contact Guard Stairs: Assistive Devices: Left Handrail, Right Handrail Comment: 1 flight of 8 inch steps with step to pattern with cues for appropriate step to sequencing on descent with R rail on ascent and L rail on descent (similar to home set-up). -CG with intermittent progression to CS for safety on stair negotiation - Standing Balance Static Stand: Contact Guard Assist Comment: no device - Pain Pain (assessed during therapy session): 0 Comment: patient denies pain - Insight/Carryover Insight/Carryover: Good - Patient/Family Education Comment: safety, therapy schedule, therapy goals, mobility, CVA recovery, use of call luevano for safety, use of self-releasing seatbelt, mobility with support of family, POC - Assessment/Plan Assessment: Patient is making good progress in therapy. Pt is responsive to therapy treatments and has fair carry-over with prior educated techniques. Pt conitnues to present with impaired balance with impaired safe utilization of balance reactions. Pt has impaired base of support with some abnormal hip gait mechanics during single limb stance. PT continues to recommend skilled therapy with emphasis on safety and mobility with reduced external burden of care with all tasks s/p CVA. PT recommends home discharge with intermittent supervision and outpatient PT services. - Goals Timeframe: 7 days Goals: -I with all bed/mat mobility including rolling and supine to/from sit. - supervision for all transfer including sit to/from stand and stand pivot. - ambulate 1000 feet on level surfaces with distant supervision. -ambulate 500 feet on uneven outdoor surfaces with close supervision/stand by-assistance. - negotiate 1 flight of steps with single rail with distant supervision - Provider Physical Therapist:: Perla Priest License Number:: [id number] Occupational Therapy - Arousal/Attention/Orientation Level of Consciousness: Awake, Alert, Forgetful Patient Orientation: Person, Place, Time, Appropriate to Age, Appropriate to Situation Assessment Comment: -llmited by impaired standing balance/tolerance, impaired endurance and overall strength, impaired safety - ADL/IADL Self Feeding: Set-up Help Grooming: Set-up Help Dressing-Upper Ext: Supervision, Verbal Cues, Set-up Help Dressing-Lower Ext: Supervision, Verbal Cues, Set-up Help, Contact Guard Comment: *bathing: TBA. *homemaking skills: TBA - Sitting Balance Static Sitting: Independent without upper extremity support Dynamic Sitting: Reaches across midline, Reaches out of base of support, Reaches within base of support, Requires supervision Comment: seatedunsupported att edge of bed - Transfers Wheelchair to Bed Transfers: Verbal Cues, Set-up Help, Minimal Assistance Toilet Transfers: Verbal Cues, Set-up Help, Minimal Assistance Comment: shower transfers: TBA - Upper Extremity Status Right Upper Extremity Comment: AROM is WFLS Left Upper Extremity Comment: AROM WFLS - Pain Pain (assessed during therapy session): 0 - Insight/Carryover Insight/Carryover: Fair - Patient/Family Education Comment: -ongoing for adls, transfers and mobility using safety/compensatory and adaptive strategies. -energy conservation/work simplification strategies. -DME needs/application of commode, shower chair with back for increase safety. -as per pt's toilet and bed elevated for safe transfers--will further investigate. -activity tolerance/enduranec and balance tasks. -pt /pt's needs addistional training to increase carryover and safety for transition home with [facility] and proper services. -Further training needed to increase carryover - Assessment/Plan Assessment: Pt is a 78 year old male with dx: acute CVA, ESRD, hypervolemia. Precautions: falls, cardiac, dialyis M-W-F. Pt limited by impaired standing balance/tolerance, impaired safety, impaired overall strength--which all impact o n function in selfcare, transfers and mobility,Iadls. Pt will continue skilled OT to maxmize function/safety with self care, transfers/mobility and Iadls, + ca regiver ed, DME needs assessment for safe transition home with services. *Goal: Intermittent S with self care, transfers and mobility with assistive device prn, - Goals Timeframe: 8 days Comment: *FEEDING: Mod I. *GROOMING: standing @ sink with Supervision/DS with assistive device prn. *UPPER BODY DRESSING: Independent. *LOWER BODY DRESSING: Mod I--takes onger than customary. *TOILETING: Supervision. *TRANSFERS:<->bed, commode, chair and other surfaces with Supervision. *LIGHT KITCHEN TASKS: Supervision and verbal cues with assistive device prn. *BATHING: Supervision/setup seated prn. *CAREGIVER ED: caregiver to be I assisting/cueing for safe completion of adls transfers and mobility - Provider Occupational Therapist:: Mary Nash License Number: [id number] Speech Therapy - Consult Information Patient on Program: Yes Medical Diagnosis: CVA Treatment Diagnosis: Cognitive Communication Impairment - Assessment Problem Solving Impairment: Moderate Memory Impairment: Moderate - Plan Plan: Continue Dysphagia Therapy Frequency: 3-5 times per week Duration: 1 week - Provider Therapist: Britany Banks License Number: [id number] Recreational Therapy - Participation Participation: Participates in Individual and/or Group Sessions - Attendance Attendance: 3-5 times per week - Activities Leisure Activities: Cards and Games - Socialization Level of Socialization: Initiates/interacts freely with care givers and peer - Assessment Assessment/Plan: Pt is agreeable to participate in 1:1 and group recreation therapy sessions. Pt was oriented to leisure tasks such as connect four, tapple, and will continue to be oriented to leisure tasks relating to memory, coordination, and improving attention to task. Pt requires min verbal cues at times for carryover of task rules or problem solving strategies during connect four task. Pt tolerates duration of sessions and demonstrates improve attention to task and arousal level. Pt complete tasks with both hands. Pt will continue to benefit from participating in recreation therapy sessions throughout stay on unit. Problems Currently Limiting Participation: R UE weakness, decrease leisure awareness level, weakness, decrease activity tolerance level Goals and Time Frame: Pt will require min verbal cues to complete 3 recreation therapy tasks within two weeks to improve activity tolerance level and diversion. - Provider Therapist: Chery Mchugh Nutrition - Current Diet Current Diet/Supplement/Feedings: renal dialysis heart healthy diet - Appetite Percent Meal Consumed: 75-100% - Assessment/Goals/Time Frame Assessments/Goals/Time Frame: Pt at moderate nutritional risk. Previous Goal(s): 1. Pt to consume 75-100% of meals (partially met/continue). 2. K+ WNL (met/continue). Follow-up due on 10/31/2018 - Provider Provider: Nani Eugene Case Management - Psychosocial Assessment Support Systems: Ramin Dumont (daughter) - [phone] Psychological Interventions/Needs: Patient is AAOx3 and able to verbalize needs Discharge Concerns: Patient is still requiring min assist/CG with ambulation and patient's works during the day. Patient/Family Meeting: CM met with patient and rehab team Intervention/Goal/Outcome: 1. Goal: intermittent supervision 2. Plan: home with VNS and HD at [facility] (M,W,F @ 2:30pm) 3. DME needs 4. f/u appts 5. continued emotional support - Discharge Plan Discharge Plan: Home with services Home Services: [facility] - Provider Provider: Berenice Ahumada License Number: [id number] Rehabilitation Plan - Treatment Plan Treatment Plan: Physical Therapy, Occupational Therapy, Speech, Patient/Family Education - Discharge Plan Estimated Date of Discharge: 11/03/18 Discharge to: Home
--- NOTE | 2018-10-27 16:51 | CP.PCM.PN ---
Subjective - Date & Time of Evaluation Date of Evaluation: 10/27/18 Time of Evaluation: 16:50 - Subjective Subjective: Patient seen in the room doing ok family is present denies sob/cp continues to work hard in therapies and make gains and will be able to avoid further SINGH at the end of his planned acute rehabilitation. Objective - Vital Signs/Intake and Output Vital Signs (last 24 hours): Temp Pulse Resp BP Pulse Ox 98.2 F 77 20 155/77 H 99 10/27/18 09:00 10/27/18 09:00 10/27/18 09:00 10/27/18 09:00 10/27/18 08:22 - Medications Medications: Current Medications Amiodarone HCl (Cordarone) 100 mg PO DAILY [facility] Last Admin: 10/27/18 08:52 Dose: 100 mg Amlodipine Besylate (Norvasc) 10 mg PO DAILY [facility] Last Admin: 10/27/18 08:52 Dose: 10 mg Ascorbic Acid (Vitamin C 500 Mg Tab) 500 mg PO DAILY [facility] Last Admin: 10/27/18 08:52 Dose: 500 mg Aspirin (Aspirin) 325 mg PO DAILY [facility] Last Admin: 10/27/18 08:57 Dose: 325 mg Docusate Sodium (Colace) 100 mg PO BID [facility] Last Admin: 10/27/18 16:37 Dose: 100 mg Epoetin Francisco (Procrit) 2,000 unit SC MWF [facility] Last Admin: 10/26/18 18:44 Dose: 2,000 unit Ergocalciferol (Drisdol 50,000 Intl Units Cap) 1 cap PO Q7D [facility] Last Admin: 10/22/18 21:13 Dose: 1 cap Iron Sucrose 100 mg/ Sodium (Chloride) 105 mls @ 105 mls/hr IVPB MWF [facility] Last Admin: 10/26/18 18:45 Dose: 105 mls/hr Pantoprazole Sodium (Protonix Ec Tab) 40 mg PO DAILY [facility] Last Admin: 10/27/18 08:52 Dose: 40 mg Vitamin B Complex/Vit C/Folic Acid (Nephro-Serjio) 1 tab PO DAILY [facility] Last Admin: 10/27/18 08:55 Dose: 1 tab - Labs Labs: 10/23/18 05:35 10/23/18 05:35 PT 18.9 Seconds (9.8-13.1) H 10/27/18 05:12 INR 1.7 10/27/18 05:12
[2018-10-28 06:54] LABS: INR 1.9; PROTHROMBIN TIME 21.5 Seconds (9.8-13.1)
[2018-10-28] MEDS: Multivitamin Vitamin B Complex (Nephro-Vite) Tab PO SCH (08:26)
[2018-10-28] MEDS: Pantoprazole 40 mg EC Tab PO SCH (08:27)
[2018-10-28] MEDS: Epoetin Alfa 20000 UNIT/ML Inj SC SCH (11:42)
--- NOTE | 2018-10-28 18:55 | CP.PCM.PN ---
Subjective - Date & Time of Evaluation Date of Evaluation: 10/28/18 Time of Evaluation: 18:55 - Subjective Subjective: doing well no complaints hd stable nad Objective - Vital Signs/Intake and Output Vital Signs (last 24 hours): Temp Pulse Resp BP Pulse Ox 97.9 F 88 20 142/84 98 10/28/18 07:50 10/28/18 08:27 10/28/18 07:50 10/28/18 08:27 10/28/18 07:50 Gen: WDWN, cooperative HEENT: NCAT, PERRL HEART: RRR S1S2 LUNG: CTAB NO WRR ABD: SOFT NT ND NO MASS EXT: WARM, WELL PERFUSED SKIN: WARM, NO RASHES NEURO: AWAKE, ALERT PSYCH: NORMAL MOOD, NORMAL AFFECT - Medications Medications: Current Medications Amiodarone HCl (Cordarone) 100 mg PO DAILY [facility] Last Admin: 10/28/18 08:26 Dose: 100 mg Amlodipine Besylate (Norvasc) 10 mg PO DAILY [facility] Last Admin: 10/28/18 08:27 Dose: 10 mg Ascorbic Acid (Vitamin C 500 Mg Tab) 500 mg PO DAILY [facility] Last Admin: 10/28/18 08:28 Dose: 500 mg Aspirin (Aspirin) 325 mg PO DAILY [facility] Last Admin: 10/28/18 08:38 Dose: 325 mg Docusate Sodium (Colace) 100 mg PO BID [facility] Last Admin: 10/28/18 17:10 Dose: 100 mg Epoetin Francisco (Procrit) 2,000 unit SC MWF [facility] Last Admin: 10/28/18 11:42 Dose: 2,000 unit Ergocalciferol (Drisdol 50,000 Intl Units Cap) 1 cap PO Q7D [facility] Last Admin: 10/22/18 21:13 Dose: 1 cap Iron Sucrose 100 mg/ Sodium (Chloride) 105 mls @ 105 mls/hr IVPB MWF [facility] Last Admin: 10/28/18 11:45 Dose: 105 mls/hr Lactulose (Enulose) 20 gm PO BID PRN PRN Reason: Constipation Pantoprazole Sodium (Protonix Ec Tab) 40 mg PO DAILY [facility] Last Admin: 10/28/18 08:27 Dose: 40 mg Vitamin B Complex/Vit C/Folic Acid (Nephro-Serjio) 1 tab PO DAILY [facility] Last Admin: 10/28/18 08:26 Dose: 1 tab - Labs Labs: 10/23/18 05:35 10/23/18 05:35 PT 21.5 Seconds (9.8-13.1) H 10/28/18 05:25 INR 1.9 10/28/18 05:25 Assessment and Plan - Assessment and Plan (Free Text) Plan: 78 yr old M with history of HTN, CAD, AFib, Colon cancer post-resection in 2012 and ESRD was admitted in [facility] on 10/14/2018 because of sudden onset of paresthesia of the left hand and right side of the face. MRI showed left pontine infarct. On 10/20/2018 patient underwent his 1st hemodialysis followed with another hemodialysis the next day. HD is scheduled MWF, patient is tolerating PT well. 1. Left Pontine Infarct -acute, stable -physiatry consult with Dr Pyle -continue aspirin 325mg PO QD, hypertension control 2. Hypertension -chronic, stable -continue Amlodipine 10mg PO QD 3. CAD -continue ASA -lipid profile 10/14/18: triglycerides 187, cholesterol 262, LDL 51, HDL 89 -will consider statin 4. AFib -chronic, stable -presently in sinus with control rate -continue Amiodarone 100 PO QD -INR 1.5 today, continue Warfarin 7.5 PO QD5 5. ESRD -recently started on hemodialysis -Nephrology on consult: Dr Escobedo; HD scheduled MWF, continue Epoetin 2,000 units SC MWF and Venofer 100mg IV MWF 6. DVT prophylaxis -patient on Warfarin
--- NOTE | 2018-10-28 21:11 | CP.PCM.PN ---
Subjective - Date & Time of Evaluation Date of Evaluation: 10/28/18 Time of Evaluation: 15:00 - Subjective Subjective: SEEN ON RENAL F/U ON HD Karthikeyan Carlin . RECIEVED HIS HD TODAY ON EPO FOR ANEMIA OF CKD FEELS MUCH BETTER Objective - Vital Signs/Intake and Output Vital Signs (last 24 hours): Temp Pulse Resp BP Pulse Ox 97.7 F 82 20 142/78 98 10/28/18 20:03 10/28/18 20:03 10/28/18 20:03 10/28/18 20:03 10/28/18 20:03 - Medications Medications: Current Medications Amiodarone HCl (Cordarone) 100 mg PO DAILY [facility] Last Admin: 10/28/18 08:26 Dose: 100 mg Amlodipine Besylate (Norvasc) 10 mg PO DAILY [facility] Last Admin: 10/28/18 08:27 Dose: 10 mg Ascorbic Acid (Vitamin C 500 Mg Tab) 500 mg PO DAILY [facility] Last Admin: 10/28/18 08:28 Dose: 500 mg Aspirin (Aspirin) 325 mg PO DAILY [facility] Last Admin: 10/28/18 08:38 Dose: 325 mg Docusate Sodium (Colace) 100 mg PO BID [facility] Last Admin: 10/28/18 17:10 Dose: 100 mg Epoetin Francisco (Procrit) 2,000 unit SC [facility] Last Admin: 10/28/18 11:42 Dose: 2,000 unit Ergocalciferol (Drisdol 50,000 Intl Units Cap) 1 cap PO Q7D [facility] Last Admin: 10/22/18 21:13 Dose: 1 cap Iron Sucrose 100 mg/ Sodium (Chloride) 105 mls @ 105 mls/hr IVPB MWF [facility] Last Admin: 10/28/18 11:45 Dose: 105 mls/hr Lactulose (Enulose) 20 gm PO BID PRN PRN Reason: Constipation Pantoprazole Sodium (Protonix Ec Tab) 40 mg PO DAILY [facility] Last Admin: 10/28/18 08:27 Dose: 40 mg Vitamin B Complex/Vit C/Folic Acid (Nephro-Serjio) 1 tab PO DAILY [facility] Last Admin: 10/28/18 08:26 Dose: 1 tab - Labs Labs: 10/23/18 05:35 10/23/18 05:35 PT 21.5 Seconds (9.8-13.1) H 10/28/18 05:25 INR 1.9 10/28/18 05:25 Assessment and Plan - Assessment and Plan (Free Text) Assessment: ESRD ON HD M W F .. TO BE C/O ANEMIA OF CKD .. ON EPO AND VENOFER CVA .. FOR IN MMP P : C/O CURRENT CARE C/O PRESENT MANAGEMENT C/O SAME MEDS
[2018-10-29 08:14] LABS: INR 2.2; PROTHROMBIN TIME 25.2 Seconds (9.8-13.1)
[2018-10-29] MEDS: Multivitamin Vitamin B Complex (Nephro-Vite) Tab PO SCH (08:20)
[2018-10-29] MEDS: Pantoprazole 40 mg EC Tab PO SCH (08:23)
--- NOTE | 2018-10-29 17:30 | CP.PCM.PN ---
Subjective - Date & Time of Evaluation Date of Evaluation: 10/29/18 Time of Evaluation: 17:30 - Subjective Subjective: Patient seen in the room friend is visiting denies sob/cp doing ok much more confident in function continue current care. Objective - Vital Signs/Intake and Output Vital Signs (last 24 hours): Temp Pulse Resp BP Pulse Ox 97.7 F 83 19 118/80 98 10/29/18 08:21 10/29/18 08:24 10/29/18 08:21 10/29/18 08:24 10/29/18 08:21 - Medications Medications: Current Medications Amiodarone HCl (Cordarone) 100 mg PO DAILY [facility] Last Admin: 10/29/18 08:24 Dose: 100 mg Amlodipine Besylate (Norvasc) 10 mg PO DAILY [facility] Last Admin: 10/29/18 08:20 Dose: 10 mg Ascorbic Acid (Vitamin C 500 Mg Tab) 500 mg PO DAILY [facility] Last Admin: 10/29/18 08:22 Dose: 500 mg Aspirin (Aspirin) 325 mg PO DAILY [facility] Last Admin: 10/29/18 08:20 Dose: 325 mg Docusate Sodium (Colace) 100 mg PO BID [facility] Last Admin: 10/29/18 17:00 Dose: 100 mg Epoetin Francisco (Procrit) 2,000 unit SC MWF [facility] Last Admin: 10/28/18 11:42 Dose: 2,000 unit Ergocalciferol (Drisdol 50,000 Intl Units Cap) 1 cap PO Q7D [facility] Last Admin: 10/22/18 21:13 Dose: 1 cap Iron Sucrose 100 mg/ Sodium (Chloride) 105 mls @ 105 mls/hr IVPB MWF [facility] Last Admin: 10/28/18 11:45 Dose: 105 mls/hr Lactulose (Enulose) 20 gm PO BID PRN PRN Reason: Constipation Pantoprazole Sodium (Protonix Ec Tab) 40 mg PO DAILY [facility] Last Admin: 10/29/18 08:23 Dose: 40 mg Vitamin B Complex/Vit C/Folic Acid (Nephro-Serjio) 1 tab PO DAILY [facility] Last Admin: 10/29/18 08:20 Dose: 1 tab - Labs Labs: 10/23/18 05:35 10/23/18 05:35 PT 25.2 Seconds (9.8-13.1) H 10/29/18 07:45 INR 2.2 10/29/18 07:45
[2018-10-29] MEDS: Ergocalciferol 50,000 Intl Units Cap PO SCH (18:54)
[2018-10-30 06:02] LABS: INR 2.5; PROTHROMBIN TIME 28.7 Seconds (9.8-13.1)
[2018-10-30] MEDS: Pantoprazole 40 mg EC Tab PO SCH (08:27)
[2018-10-30] MEDS: Multivitamin Vitamin B Complex (Nephro-Vite) Tab PO SCH (09:00)
--- NOTE | 2018-10-30 09:55 | CP.PCM.PN ---
Subjective - Date & Time of Evaluation Date of Evaluation: 10/30/18 Time of Evaluation: 09:55 - Subjective Subjective: no complaints hd stable nad Objective - Vital Signs/Intake and Output Vital Signs (last 24 hours): Temp Pulse Resp BP Pulse Ox 97.5 F L 88 20 136/86 98 10/30/18 08:08 10/30/18 08:28 10/30/18 08:08 10/30/18 08:28 10/30/18 08:08 - Medications Medications: Current Medications Amiodarone HCl (Cordarone) 100 mg PO DAILY [facility] Last Admin: 10/30/18 08:28 Dose: 100 mg Amlodipine Besylate (Norvasc) 10 mg PO DAILY [facility] Last Admin: 10/30/18 08:27 Dose: 10 mg Ascorbic Acid (Vitamin C 500 Mg Tab) 500 mg PO DAILY [facility] Last Admin: 10/30/18 08:27 Dose: 500 mg Aspirin (Aspirin) 325 mg PO DAILY [facility] Last Admin: 10/30/18 08:35 Dose: 325 mg Docusate Sodium (Colace) 100 mg PO BID [facility] Last Admin: 10/30/18 08:26 Dose: 100 mg Epoetin Francisco (Procrit) 2,000 unit SC MWF [facility] Last Admin: 10/28/18 11:42 Dose: 2,000 unit Ergocalciferol (Drisdol 50,000 Intl Units Cap) 1 cap PO Q7D [facility] Last Admin: 10/29/18 18:54 Dose: 1 cap Iron Sucrose 100 mg/ Sodium (Chloride) 105 mls @ 105 mls/hr IVPB MWF [facility] Last Admin: 10/28/18 11:45 Dose: 105 mls/hr Lactulose (Enulose) 20 gm PO BID PRN PRN Reason: Constipation Pantoprazole Sodium (Protonix Ec Tab) 40 mg PO DAILY [facility] Last Admin: 10/30/18 08:27 Dose: 40 mg Vitamin B Complex/Vit C/Folic Acid (Nephro-Serjio) 1 tab PO DAILY [facility] Last Admin: 10/29/18 08:20 Dose: 1 tab - Labs Labs: 10/23/18 05:35 10/23/18 05:35 PT 28.7 Seconds (9.8-13.1) H 10/30/18 05:35 INR 2.5 10/30/18 05:35 - Constitutional Appears: Non-toxic, No Acute Distress - Head Exam Head Exam: ATRAUMATIC, NORMOCEPHALIC - Eye Exam Eye Exam: EOMI, Normal appearance, PERRL - ENT Exam ENT Exam: Mucous Membranes Moist, Normal Oropharynx - Respiratory Exam Respiratory Exam: Clear to Ausculation Bilateral, NORMAL BREATHING PATTERN - Cardiovascular Exam Cardiovascular Exam: RRR, +S1, +S2 - GI/Abdominal Exam GI & Abdominal Exam: Soft, Normal Bowel Sounds - Extremities Exam Extremities Exam: Normal Capillary Refill, Normal Inspection - Back Exam Back Exam: absent: CVA tenderness (L), CVA tenderness (R) - Neurological Exam Neurological Exam: Alert, Awake - Psychiatric Exam Psychiatric exam: Normal Affect, Normal Mood - Skin Skin Exam: Dry, Warm Assessment and Plan - Assessment and Plan (Free Text) Plan: 78 yr old M with history of HTN, CAD, AFib, Colon cancer post-resection in 2012 and ESRD was admitted in [facility] [place] on 10/14/2018 because of sudden onset of paresthesia of the left hand and right side of the face. MRI showed left pontine infarct. On 10/20/2018 patient underwent his 1st hemodialysis followed with another hemod ialysis the next day. HD is scheduled MWF, patient is tolerating PT well. 1. Left Pontine Infarct -acute, stable -physiatry consult with Dr Pyle -continue aspirin 325mg PO QD, hypertension control 2. Hypertension -chronic, stable -continue Amlodipine 10mg PO QD 3. CAD -continue ASA -lipid profile 10/14/18: triglycerides 187, cholesterol 262, LDL 51, HDL 89 -will consider statin 4. AFib -chronic, stable -presently in sinus with control rate -continue Amiodarone 100 PO QD -INR 1.5 today, continue Warfarin 7.5 PO QD5 5. ESRD -recently started on hemodialysis -Nephrology on consult: Dr Escobedo; HD scheduled MWF, continue Epoetin 2,000 units SC MWF and Venofer 100mg IV MWF 6. DVT prophylaxis -patient on Warfarin
[2018-10-30] MEDS: Epoetin Alfa 20000 UNIT/ML Inj SC SCH (15:33)
[2018-10-30 16:08] LABS: PROTHROMBIN TIME 33.8 Seconds (9.8-13.1)
--- NOTE | 2018-10-31 06:01 | CP.PCM.PN ---
Subjective - Date & Time of Evaluation Date of Evaluation: 10/30/18 Time of Evaluation: 15:00 - Subjective Subjective: SEEN ON RENAL F/U SEEN ON HD FEELS IMPROVED Objective - Vital Signs/Intake and Output Vital Signs (last 24 hours): Temp Pulse Resp BP Pulse Ox 98.7 F 83 19 141/68 96 10/30/18 20:30 10/30/18 20:30 10/30/18 20:30 10/30/18 20:30 10/30/18 20:30 - Medications Medications: Current Medications Amiodarone HCl (Cordarone) 100 mg PO DAILY [facility] Last Admin: 10/30/18 08:28 Dose: 100 mg Amlodipine Besylate (Norvasc) 10 mg PO DAILY [facility] Last Admin: 10/30/18 08:27 Dose: 10 mg Ascorbic Acid (Vitamin C 500 Mg Tab) 500 mg PO DAILY [facility] Last Admin: 10/30/18 08:27 Dose: 500 mg Aspirin (Aspirin) 325 mg PO DAILY [facility] Last Admin: 10/30/18 08:35 Dose: 325 mg Docusate Sodium (Colace) 100 mg PO BID [facility] Last Admin: 10/30/18 17:22 Dose: 100 mg Epoetin Francisco (Procrit) 2,000 unit SC MWF [facility] Last Admin: 10/30/18 15:33 Dose: 2,000 unit Ergocalciferol (Drisdol 50,000 Intl Units Cap) 1 cap PO Q7D [facility] Last Admin: 10/29/18 18:54 Dose: 1 cap Iron Sucrose 100 mg/ Sodium (Chloride) 105 mls @ 105 mls/hr IVPB MWF [facility] Last Admin: 10/30/18 15:34 Dose: 105 mls/hr Lactulose (Enulose) 20 gm PO BID PRN PRN Reason: Constipation Pantoprazole Sodium (Protonix Ec Tab) 40 mg PO DAILY [facility] Last Admin: 10/30/18 08:27 Dose: 40 mg Vitamin B Complex/Vit C/Folic Acid (Nephro-Serjio) 1 tab PO DAILY [facility] Last Admin: 10/30/18 09:00 Dose: 1 tab - Labs Labs: 10/23/18 05:35 10/23/18 05:35 PT 33.8 Seconds (9.8-13.1) H D 10/30/18 15:16 INR 3.0 10/30/18 15:16 Assessment and Plan - Assessment and Plan (Free Text) Assessment: ESRD ON HD ANEMIA OF CKD .. ON EPO AND VENOFER ELECTROLYTES R [place] CVA MMP P: C/O HD ON C/O CURRENT TREATMENT C/O CURRENT MEDS
[2018-10-31] MEDS: Pantoprazole 40 mg EC Tab PO SCH (08:43)
[2018-10-31] MEDS: Multivitamin Vitamin B Complex (Nephro-Vite) Tab PO SCH (08:44)
[2018-10-31 11:14] LABS: INR 2.8; PROTHROMBIN TIME 32.1 Seconds (9.8-13.1)
[2018-11-01 08:09] LABS: PROTHROMBIN TIME 35.4 Seconds (9.8-13.1)
[2018-11-01] MEDS: Multivitamin Vitamin B Complex (Nephro-Vite) Tab PO SCH (08:26)
[2018-11-01] MEDS: Pantoprazole 40 mg EC Tab PO SCH (08:27)
[2018-11-01 08:40] LABS: INR 3.1
[2018-11-02] MEDS: Multivitamin Vitamin B Complex (Nephro-Vite) Tab PO SCH (08:31)
[2018-11-02] MEDS: Pantoprazole 40 mg EC Tab PO SCH (08:33)
[2018-11-02 08:43] LABS: PROTHROMBIN TIME 35.7 Seconds (9.8-13.1)
[2018-11-02 08:46] LABS: HEMOGLOBIN 9.9 g/dL (12.0-18.0); INR 3.1; MEAN CELL VOLUME 75.4 fl (80.0-94.0); MEAN CORPUSCULAR HEMOGLOBIN 24.6 pg (27.0-31.0); MEAN CORPUSCULAR HGB CONC 32.6 g/dL (33.0-37.0); RBC 4.04 Mil/uL (4.40-5.90); RED CELL DISTRIBUTION WIDTH 23.9 % (11.5-14.5); WHITE BLOOD COUNT 11.2 K/uL (4.8-10.8)
[2018-11-02] MEDS: Epoetin Alfa 20000 UNIT/ML Inj SC SCH (10:25)
--- NOTE | 2018-11-02 13:52 | US ---
Date of service: 11/02/2018 PROCEDURE: Right Upper Extremity Venous Duplex Exam HISTORY: r/o DVT PRIORS: None. TECHNIQUE: Right upper extremity, internal jugular, subclavian, axillary, brachial, ulnar, radial, basilic and upper cephalic veins were evaluated. Flow was assessed with color Doppler, compressibility, assessment of phasic flow and augmentation response. Report prepared by vascular tech. FINDINGS: RIGHT: 1. Internal Jugular Vein: Compressibility-nonocclusive thrombus visible right internal jugular vein. The vein is both compressible and displays phasicity. 2. Subclavian Vein:Compressibility - Fully compressible: Thrombus - None : Flow - Phasic 3. Axillary Vein: Compressibility - Fully compressible: Thrombus - None 4. Brachial Vein: Compressibility - Fully compressible: Thrombus - None 5. Ulnar Vein:Compressibility - Fully compressible: Thrombus - None 6. Radial Vein:Compressibility - Fully compressible: Thrombus - None 7. Cephalic Vein: Compressibility - Fully compressible: thrombus - None 8. Basilic Vein:Compressibility - Fully compressible: thrombus - None OTHER FINDINGS: None. IMPRESSION: Limited common nonocclusive thrombus confined to the right internal jugular vein.
[2018-11-03 00:18] VITALS: RESP 20
[2018-11-03 06:41] LABS: PROTHROMBIN TIME 38.9 Seconds (9.8-13.1)
[2018-11-03 07:06] LABS: INR 3.4
[2018-11-03 08:30] VITALS: BP 155/88; PULSE 86; TEMP 98.1; O2SAT 99
[2018-11-03] MEDS: Multivitamin Vitamin B Complex (Nephro-Vite) Tab PO SCH (08:31)
[2018-11-03] MEDS: Pantoprazole 40 mg EC Tab PO SCH (08:32)
--- NOTE | 2018-11-03 10:44 | CP.PCM.DIS ---
Provider - Provider Date of Admission: 10/22/18 13:40 Attending physician: Catrachito Hernandez MD Consults: 10/22/18 13:56 Case Management Referral Routine Comment: Physician Instructions: Reason For Exam: CVA Reason for Referral: Supervisor Engraving Eval 10/22/18 13:59 Physiatry Consult Routine Comment: Consulting Provider: Misbah Pyle Consulting Physician: Misbah Pyle Reason for Consult: CVA 10/22/18 14:55 Nephrology Consult Routine Comment: Consulting Provider: Libby Escobedo Consulting Physician: Libby Escobedo Reason for Consult: dialysis order 10/22/18 17:45 Pastoral Care Referral Routine Comment: Advance directive information Physician Instructions: Reason For Exam: as per MD order 10/23/18 08:00 Pharmacist Consult As Ordered Comment: Physician Instructions: Reason For Exam: Patient on hemodialysis Social Work Referral Routine Comment: Patient on hemodialysis Physician Instructions: Reason For Exam: Patient on hemodialysis M-W-F 11/02/18 14:54 Hematology Oncology Consult Routine Comment: Consulting Provider: Shubham Sanchez Consulting Physician: Shubham Sanchez Reason for Consult: right internal jugular vein thrombosis Time Spent in preparation of Discharge (in minutes): 25 Diagnosis - Discharge Diagnosis (1) CVA (cerebral vascular accident) Status: Acute Comment: left pontine infarct on MRI. did well with PT/OT. continue ASA and BP control (2) ESRD (end stage renal disease) Status: Chronic Comment: hemodialysis on MWF. continue Venofer and Procrit during dialysis (3) DVT (deep venous thrombosis) Status: Acute Comment: probably secondary to ferma cath on right subclavian disturbing free flow of blood. patient already on Coumadin 5mg PO daily. hematology consult with Dr Sanchez (4) Afib Status: Chronic Comment: stable, presently in sinus with control rate. continue Warfarin and Amiodarone (5) HTN (hypertension) Status: Chronic Comment: BP controlled. continue Amlodipine (6) CAD (coronary artery disease) Status: Acute Comment: continue ASA. consider starting on statin Hospital Course - Lab Results Lab Results: Most Recent Lab Values WBC 11.2 K/uL (4.8-10.8) H D 11/02/18 08:00 RBC 4.04 Mil/uL (4.40-5.90) L 11/02/18 08:00 Hgb 9.9 g/dL (12.0-18.0) L 11/02/18 08:00 Hct 30.5 % (35.0-51.0) L 11/02/18 08:00 MCV 75.4 fl (80.0-94.0) L 11/02/18 08:00 MCH 24.6 pg (27.0-31.0) L 11/02/18 08:00 MCHC 32.6 g/dL (33.0-37.0) L 11/02/18 08:00 RDW 23.9 % (11.5-14.5) H 11/02/18 08:00 Plt Count 294 K/uL (130-400) D 11/02/18 08:00 MPV 9.2 fl (7.2-11.7) 10/23/18 05:35 Neut % (Auto) 48.4 % (50.0-75.0) L 10/23/18 05:35 Lymph % (Auto) 36.7 % (20.0-40.0) 10/23/18 05:35 [place] % (Auto) 8.9 % (0.0-10.0) 10/23/18 05:35 Eos % (Auto) 5.5 % (0.0-4.0) H 10/23/18 05:35 Baso % (Auto) 0.5 % (0.0-2.0) 10/23/18 05:35 Neut # (Auto) 3.1 K/uL (1.8-7.0) 10/23/18 05:35 Lymph # (Auto) 2.3 K/uL (1.0-4.3) 10/23/18 05:35 [place] # (Auto) 0.6 K/uL (0.0-0.8) 10/23/18 05:35 Eos # (Auto) 0.3 K/uL (0.0-0.7) 10/23/18 05:35 Baso # (Auto) 0.0 K/uL (0.0-0.2) 10/23/18 05:35 PT 38.9 Seconds (9.8-13.1) H 11/03/18 06:10 INR 3.4 11/03/18 06:10 Sodium 133 mmol/l (132-148) 10/23/18 05:35 Potassium 4.5 MMOL/L (3.6-5.0) 10/23/18 05:35 Chloride 99 mmol/L (98-107) 10/23/18 05:35 Carbon Dioxide 24 mmol/L (22-30) 10/23/18 05:35 Anion Gap 15 (10-20) 10/23/18 05:35 BUN 40 mg/dl (9-20) H 10/23/18 05:35 Creatinine 5.4 mg/dl (0.8-1.5) H 10/23/18 05:35 Est GFR ( Amer) 13 10/23/18 05:35 Est GFR (Non-Af Amer) 10 10/23/18 05:35 POC Glucose (mg/dL) 91 mg/dL (65-110) 10/23/18 20:32 Random Glucose 82 mg/dL (75-110) 10/23/18 05:35 Uric Acid 5.3 mg/Dl (3.5-8.5) 10/23/18 18:00 Calcium 7.4 mg/dL (8.4-10.2) L 10/23/18 05:35 Phosphorus 4.5 mg/dl (2.5-4.5) 10/23/18 18:00 Magnesium 2.1 MG/DL (1.6-2.3) 10/23/18 18:00 25-OH Vitamin D Total 42.9 NG/ML (30.0-100.0) 10/23/18 17:59 Hep B Core IgM Ab Negative (NEGATIVE) 10/23/18 20:17 - Hospital Course Hospital Course: 78 yo male with history of HTN, CAD, AFib, Colon cancer post-resection in 2012 and [place]D [place] [facility] [place] because of sudden onset of paresthesia of the left hand and right side of the face. MRI showed left pontine infarct. On 10/20/2018 patient underwent his 1st hemodialysis using right subclavian ferma- cath followed with another hemodialysis the next day. He was transferred to [facility] on 10/22/2018 and had hemodialysis MWF. On 11/02/2018 venous doppler was done on the right upper extremity because of swelling which showed non- occlusive thrombus on the right internal jugular vein. Since patient was already on Warfarin for AFib, no further management was recommended. Today patient was discharged in stable condition. Discharge Exam - Head Exam Head Exam: ATRAUMATIC, NORMOCEPHALIC - Eye Exam Eye Exam: absent: Scleral icterus - ENT Exam ENT Exam: Mucous Membranes Moist - Respiratory Exam Respiratory Exam: absent: Rales, Rhonchi, Wheezes, Respiratory Distress - Cardiovascular Exam Cardiovascular Exam: REGULAR RHYTHM, +S1, +S2 - GI/Abdominal Exam GI & Abdominal Exam: Soft. absent: Tenderness - Rectal Exam Rectal Exam: Deferred - Neurological Exam Neurological exam: Alert, Oriented x3 - Psychiatric Exam Psychiatric exam: Normal Affect - Skin Skin Exam: Dry, Intact Discharge Plan - Discharge Medications Prescriptions: amLODIPine [Norvasc] 10 mg PO DAILY #30 tab Ergocalciferol [Drisdol 50,000 Intl Units Cap] 1 cap PO Q7D #8 cap Pantoprazole [Protonix EC Tab] 40 mg PO DAILY #30 ect Vitamin B Complex/Vit C/Folic [Nephro-Serjio] 1 tab PO DAILY #30 tab - Follow Up Plan Condition: GOOD Disposition: HOME/ ROUTINE
--- NOTE | 2018-11-03 13:26 | CP.PCM.PN ---
Subjective - Date & Time of Evaluation Date of Evaluation: 11/03/18 Time of Evaluation: 13:25 - Subjective Subjective: Patient seen in the room set for d/c home today denies fever or CP has done very well and has made excellent gains Objective - Vital Signs/Intake and Output Vital Signs (last 24 hours): Temp Pulse Resp BP Pulse Ox 98.1 F 86 20 155/88 H 99 11/03/18 08:00 11/03/18 08:32 11/03/18 08:00 11/03/18 08:32 11/03/18 08:00 - Medications Medications: Current Medications Amiodarone HCl (Cordarone) 100 mg PO DAILY [facility] Last Admin: 11/03/18 08:31 Dose: 100 mg Amlodipine Besylate (Norvasc) 10 mg PO DAILY [facility] Last Admin: 11/03/18 08:32 Dose: 10 mg Ascorbic Acid (Vitamin C 500 Mg Tab) 500 mg PO DAILY [facility] Last Admin: 11/03/18 08:32 Dose: 500 mg Aspirin (Aspirin) 325 mg PO DAILY [facility] Last Admin: 11/03/18 08:34 Dose: 325 mg Docusate Sodium (Colace) 100 mg PO BID [facility] Last Admin: 11/03/18 08:31 Dose: 100 mg Epoetin Francisco (Procrit) 2,000 unit SC MWF [facility] Last Admin: 11/02/18 10:25 Dose: 2,000 unit Ergocalciferol (Drisdol 50,000 Intl Units Cap) 1 cap PO Q7D [facility] Last Admin: 10/29/18 18:54 Dose: 1 cap Iron Sucrose 100 mg/ Sodium (Chloride) 105 mls @ 105 mls/hr IVPB MWF [facility] Last Admin: 11/02/18 18:46 Dose: 105 mls/hr Lactulose (Enulose) 20 gm PO BID PRN PRN Reason: Constipation Pantoprazole Sodium (Protonix Ec Tab) 40 mg PO DAILY [facility] Last Admin: 11/03/18 08:32 Dose: 40 mg Vitamin B Complex/Vit C/Folic Acid (Nephro-Serjio) 1 tab PO DAILY [facility] Last Admin: 11/03/18 08:31 Dose: 1 tab - Labs Labs: 11/02/18 08:00 10/23/18 05:35 PT 38.9 Seconds (9.8-13.1) H 11/03/18 06:10 INR 3.4 11/03/18 06:10
== END 2018-11-03 17:55 | disposition home health service (06) | DRG 56 ==
PROC: F07M6FZ Therapeutic Exercise Treatment of Musculoskeletal System - Whole Body using Assistive, Adaptive, Supportive or Protective Equipment (ICD-10-PCS; 2018-10-22)
PROC: F08Z4FZ Home Management Treatment using Assistive, Adaptive, Supportive or Protective Equipment (ICD-10-PCS; 2018-10-22)
PROC: F07Z9FZ Gait Training/Functional Ambulation Treatment using Assistive, Adaptive, Supportive or Protective Equipment (ICD-10-PCS; 2018-10-22)
PROC: 5A1D70Z Performance of Urinary Filtration, Intermittent, Less than 6 Hours Per Day (ICD-10-PCS; principal; 2018-10-28)
PROC: 5A1D70Z Performance of Urinary Filtration, Intermittent, Less than 6 Hours Per Day (ICD-10-PCS; 2018-10-30)
DX: I69.351 Hemiplegia and hemiparesis following cerebral infarction affecting right dominant side (principal); N18.6 End stage renal disease; I12.0 Hypertensive chronic kidney disease with stage 5 chronic kidney disease or end stage renal disease; K21.9 Gastro-esophageal reflux disease without esophagitis; M06.9 Rheumatoid arthritis, unspecified; Z79.01 Long term (current) use of anticoagulants; Z79.82 Long term (current) use of aspirin; Z85.038 Personal history of other malignant neoplasm of large intestine; Z95.5 Presence of coronary angioplasty implant and graft; Z99.2 Dependence on renal dialysis; D63.1 Anemia in chronic kidney disease; I25.10 Atherosclerotic heart disease of native coronary artery without angina pectoris; I48.2 Chronic atrial fibrillation